=== PATIENT | male | born 1980 | race Caucasian/White ===

== ENCOUNTER 2024-10-06 12:28 | Emergency (ER) | payer SELFPAY ==
[2024-10-06] MEDS: Ketorolac 30 MG/ML SDV IM ONE (14:10)
== END 2024-10-06 14:01 | disposition home or self-care (01) ==
LOC: MW.ED 12:28
DX: M54.41 Lumbago with sciatica, right side (principal); M54.42 Lumbago with sciatica, left side; Z79.899 Other long term (current) drug therapy
CPT/HCPCS: 99283; J1100; J1885; 99282